=== PATIENT | female | born 1990 | race Caucasian/White ===

== ENCOUNTER 2020-01-01 20:39 | Emergency (ER) | payer OTHER ==
[~2020-01-01] VITALS: Ht 167.6 cm; Wt 56.7 kg
[2020-01-01 21:15] VITALS: BP 142/98
== END 2020-01-01 21:17 | disposition home or self-care (01) ==
LOC: ER 20:39
DX: R09.81 Nasal congestion (principal); J02.9 Acute pharyngitis, unspecified; R19.7 Diarrhea, unspecified; Z20.828 Contact with and (suspected) exposure to other viral communicable diseases